=== PATIENT | male | born 1940 | race Two or more races ===

== ENCOUNTER → 2016-09-15 | Outpatient (REF) | payer MEDICARE, BC, OTHER ==
[2016-09-15 13:44] LABS: CALCIUM LEVEL 9.9 MG/DL (8.8-10.2); CREATININE FOR GFR 1.42 MG/DL (0.70-1.30); GLOMERULAR FILTRATION RATE 51.3 (>42); POTASSIUM SERUM 4.8 MEQ/L (3.5-5.1)
== END ==
LOC: M SFHCPLAZ 11:37
PROVIDERS: ATTEND Family Medicine
DX: I10 Essential (primary) hypertension (principal); F17.200 Nicotine dependence, unspecified, uncomplicated; M19.90 Unspecified osteoarthritis, unspecified site; F33.41 Major depressive disorder, recurrent, in partial remission; Z79.82 Long term (current) use of aspirin; Z79.899 Other long term (current) drug therapy
CPT/HCPCS: 80048; 80061; 83036; 94010; G0463

== ENCOUNTER → 2016-09-30 | Outpatient (CLI) | payer MEDICARE, BC, OTHER ==
--- NOTE | 2016-09-30 12:50 | REP ---
BILATERAL ANKLES: AP and lateral views of the bilateral ankles are performed. There is no acute fracture or dislocation on the left. There is moderate narrowing of the tibiotalar joint with subchondral sclerosis. Mild vascular calcifications are seen in the soft tissues. There is mild narrowing and subchondral sclerosis at the talonavicular joint. On the right there is no fracture or dislocation. There is tiny posterior and inferior calcaneal spurring. There are mild vascular calcifications in the soft tissues. There is moderate narrowing, subchondral sclerosis and spurring at the talonavicular joint. IMPRESSION: Bilateral arthritic changes as above. Signed by Alexey Hassan MD 09/30/2016 05:09 P
== END ==
LOC: M LAB 10:50 → M RAD 10:50
PROVIDERS: ATTEND Family Medicine
DX: M19.90 Unspecified osteoarthritis, unspecified site (principal)

== ENCOUNTER → 2016-11-28 | Outpatient (REF) | payer MEDICARE, OTHER ==
[2016-11-28 15:38] LABS: CALCIUM LEVEL 9.1 MG/DL (8.8-10.2); CREATININE FOR GFR 1.58 MG/DL (0.70-1.30); GLOMERULAR FILTRATION RATE 45.4 (>42); POTASSIUM SERUM 4.6 MEQ/L (3.5-5.1)
== END ==
LOC: M SFHCPLAZ 12:32
PROVIDERS: ATTEND Family Medicine
DX: N18.3 Chronic kidney disease, stage 3 (moderate) (principal); E11.22 Type 2 diabetes mellitus with diabetic chronic kidney disease

== ENCOUNTER → 2016-12-02 | Outpatient (REF) | payer MEDICARE, OTHER | LOC: M SFHCPLAZ 10:49 | PROVIDERS: ATTEND Family Medicine | DX: L98.9 Disorder of the skin and subcutaneous tissue, unspecified (principal) | CPT/HCPCS: 11602; 13132; 88305; G0463 ==

== ENCOUNTER → 2017-03-11 | Outpatient (REF) | payer MEDICARE, OTHER ==
[2017-03-11 10:55] LABS: ANION GAP 6 MEQ/L (8-16); BLOOD UREA NITROGEN 24 MG/DL (7-18); CALCIUM LEVEL 8.7 MG/DL (8.8-10.2); CARBON DIOXIDE LEVEL 27 MEQ/L (21-32); CHLORIDE LEVEL 109 MEQ/L (98-107); CREATININE FOR GFR 1.55 MG/DL (0.70-1.30); GLOMERULAR FILTRATION RATE 46.4 (>42); GLUCOSE, FASTING 119 MG/DL (70-100); POTASSIUM SERUM 4.8 MEQ/L (3.5-5.1); SODIUM LEVEL 142 MEQ/L (136-145); URIC ACID 5.9 MG/DL (3.5-7.2)
[2017-03-11 11:30] LABS: MALB URINE SIEMENS 18.7 MG/L; MAU/CREAT RATIO 15.7 MCG/MG (0.0-30.0)
[2017-03-11 11:32] LABS: ESTIMATED AVERAGE GLUCOSE 123 MG/DL (60-110); HEMOGLOBIN A1c 5.9 %
== END ==
LOC: M SFHCPLAZ 08:39
DX: E11.22 Type 2 diabetes mellitus with diabetic chronic kidney disease (principal); N18.3 Chronic kidney disease, stage 3 (moderate)
CPT/HCPCS: 84550

== ENCOUNTER → 2017-08-13 | Outpatient (REF) | payer MEDICARE, OTHER ==
[2017-08-13 12:40] LABS: ANION GAP 7 MEQ/L (8-16); BLOOD UREA NITROGEN 32 MG/DL (7-18); CARBON DIOXIDE LEVEL 26 MEQ/L (21-32); CHLORIDE LEVEL 110 MEQ/L (98-107); CREATININE FOR GFR 1.56 MG/DL (0.70-1.30); GLOMERULAR FILTRATION RATE 45.9 (>42); GLUCOSE, FASTING 100 MG/DL (70-100); POTASSIUM SERUM 4.9 MEQ/L (3.5-5.1); SODIUM LEVEL 143 MEQ/L (136-145)
[2017-08-13 12:52] LABS: CREATININE, URINE 95.3 MG/DL; MALB URINE SIEMENS 19.8 MG/L; MAU/CREAT RATIO 20.7 MCG/MG (0.0-30.0)
[2017-08-13 13:02] LABS: ESTIMATED AVERAGE GLUCOSE 137 MG/DL (60-110); HEMOGLOBIN A1c 6.4 %
== END ==
LOC: M SFHCPLAZ 08:18
DX: E11.22 Type 2 diabetes mellitus with diabetic chronic kidney disease (principal); N18.3 Chronic kidney disease, stage 3 (moderate)
CPT/HCPCS: 83036

== ENCOUNTER 2018-02-25 15:11 | Emergency (ER) | payer MEDICARE, BC, OTHER ==
[~2018-02-25] VITALS: Ht 177.8 cm; Wt 72.7 kg
[2018-02-25] MEDS ORDERED: HYDR-3716 PO (15:25)
[2018-02-25] MEDS ORDERED: LISI-542 PO (15:25)
[2018-02-25] MEDS ORDERED: GABA-1171 PO (15:25)
[2018-02-25] MEDS ORDERED: JANU25TA PO (15:25)
[2018-02-25] MEDS ORDERED: NS 1,000 ML IV SCH (16:15)
[2018-02-25 16:21] LABS: BASO # 0.1 10^3/uL (0.0-0.2); BASO % 0.9 % (0.0-1.0); EOS # 0.1 10^3/uL (0.0-0.50); EOS % 0.7 % (0.0-3.0); HEMATOCRIT 32.2 % (42.0-52.0); HEMOGLOBIN 10.3 g/dl (13.5-17.5); LYMPH # 0.6 10^3/uL (1.5-4.5); LYMPH % 6.6 % (24.0-44.0); MEAN CORPUSCULAR HEMOGLOBIN 28.8 pg (27.0-33.0); MEAN CORPUSCULAR VOLUME 89.9 fl (80.0-96.0); MONO # 0.6 10^3/uL (0.0-0.8); MONO % 6.8 % (0.0-5.0); NEUTROPHILS # 7.3 10^3/uL (1.8-7.7); NEUTROPHILS % 84.7 % (36.0-66.0); PLATELET COUNT, AUTOMATED 215 10^3/uL (150-450); RED BLOOD COUNT 3.58 10^6/uL (4.30-6.10); WHITE BLOOD COUNT 8.7 10^3/uL (4.0-10.0)
[2018-02-25 16:35] LABS: CALCIUM LEVEL 8.7 MG/DL (8.8-10.2); CREATININE FOR GFR 1.46 MG/DL (0.70-1.30); GLOMERULAR FILTRATION RATE 49.6 (>42); POTASSIUM SERUM 4.6 MEQ/L (3.5-5.1)
[2018-02-25 16:51] VITALS: BP 186/86
[2018-02-26] MEDS ORDERED: DULO1CAP2 PO (11:48)
[2018-02-26] MEDS ORDERED: PROAAER10 INH (13:49)
== END 2018-02-25 16:55 | disposition home or self-care (01) ==
LOC: M ED 15:11 → EDBD 15:11 → M ED 16:55
DX: R30.0 Dysuria (principal); E11.9 Type 2 diabetes mellitus without complications; I10 Essential (primary) hypertension; M19.90 Unspecified osteoarthritis, unspecified site; F32.9 Major depressive disorder, single episode, unspecified; M25.579 Pain in unspecified ankle and joints of unspecified foot; K26.9 Duodenal ulcer, unspecified as acute or chronic, without hemorrhage or perforation; Z72.0 Tobacco use; Z79.899 Other long term (current) drug therapy

== ENCOUNTER 2018-02-26 11:11 | Inpatient (IN) | payer MEDICARE, BC, OTHER ==
[~2018-02-26] VITALS: Ht 177.8 cm; Wt 71.6 kg
[2018-02-26] MEDS: LISINOPRIL 5 MG TAB PO SCH (09:00)
[2018-02-26] MEDS: DULoxetine 30 MG CAP (CYMBALTA) PO SCH (09:00)
[~2018-02-26 11:11] MED LIST: GABA-1171 PO; HYDR-3716 PO; JANU25TA PO; LISI-542 PO
[2018-02-26 11:45] LABS: BASO # 0.1 10^3/uL (0.0-0.2); BASO % 0.9 % (0.0-1.0); EOS % 0.3 % (0.0-3.0); HEMATOCRIT 39.5 % (42.0-52.0); HEMOGLOBIN 12.3 g/dl (13.5-17.5); LYMPH # 0.8 10^3/uL (1.5-4.5); LYMPH % 12.1 % (24.0-44.0); MEAN CORPUSCULAR HEMOGLOBIN 28.4 pg (27.0-33.0); MEAN CORPUSCULAR HGB CONC 31.1 g/dl (32.0-36.5); MEAN CORPUSCULAR VOLUME 91.2 fl (80.0-96.0); MONO # 0.4 10^3/uL (0.0-0.8); MONO % 6.2 % (0.0-5.0); NEUTROPHILS # 5.5 10^3/uL (1.8-7.7); NEUTROPHILS % 80.4 % (36.0-66.0); PLATELET COUNT, AUTOMATED 216 10^3/uL (150-450); RED BLOOD COUNT 4.33 10^6/uL (4.30-6.10); WHITE BLOOD COUNT 6.8 10^3/uL (4.0-10.0)
[2018-02-26] MEDS ORDERED: DULO1CAP2 PO (11:48)
--- NOTE | 2018-02-26 12:12 | REP ---
CT Head without contrast HISTORY: Altered mental status COMPARISON: None Areas of decreased attenuation are present in the periventricular and subcortical white matter. This represents small-vessel ischemic disease. There is no intraparenchymal hemorrhage, acute infarct, mass or midline shift. The ventricular system and cortical sulci as well as subarachnoid space in the posterior fossa are dilated consistent with moderate volume loss. There is no extra cerebral collection. There is no fracture. The visualized sinuses are clear. IMPRESSION: 1. Small vessel ischemic disease. 2. Moderate volume loss. Electronically Signed by Seven Morin MD 02/26/2018 12:03 P
[2018-02-26 12:18] LABS: AMPHETAMINES LEVEL URINE NEGATIVE (NEGATIVE); BARBITURATES URINE NEGATIVE (NEGATIVE); BENZODIAZEPINES URINE NEGATIVE (NEGATIVE); CANNABINOIDS URINE NEGATIVE (NEGATIVE); COCAINE METABOLITE URINE NEGATIVE (NEGATIVE); METHADONE URINE NEGATIVE (NEGATIVE); OPIATES URINE POSITIVE (NEGATIVE); PHENCYCLIDINE URINE NEGATIVE (NEGATIVE)
[2018-02-26] MEDS ORDERED: ONDANSETRON 4MG/2ML VIAL (J2405) As Ordered ONE (12:18)
[2018-02-26] MEDS ORDERED: ONDANSETRON 4MG/2ML VIAL (J2405) IV ONE (12:30)
[2018-02-26] MEDS ORDERED: NS 1,000 ML IV ONE (12:30)
[2018-02-26 12:40] LABS: ALBUMIN 3.7 GM/DL (3.2-5.2); ALT/SGPT 20 U/L (12-78); BILIRUBIN,DIRECT 0.1 MG/DL (0.0-0.2); BILIRUBIN,TOTAL 0.4 MG/DL (0.2-1.0); BLOOD UREA NITROGEN 19 MG/DL (7-18); CALCIUM LEVEL 9.2 MG/DL (8.8-10.2); CARBON DIOXIDE LEVEL 24 MEQ/L (21-32); CHLORIDE LEVEL 104 MEQ/L (98-107); CPK CREATINE PHOSPHOKINASE 508 U/L (39-308); CREATININE FOR GFR 1.44 MG/DL (0.70-1.30); ETHYL ALCOHOL (ETHANOL) < 0.003 % (0.000-0.010); GLOMERULAR FILTRATION RATE 50.4 (>42); GLUCOSE, FASTING 135 MG/DL (70-100); MB/CK RELATIVE INDEX 1.93 (< OR =4); POTASSIUM SERUM 4.6 MEQ/L (3.5-5.1); SODIUM LEVEL 136 MEQ/L (136-145); TOTAL PROTEIN 7.8 GM/DL (6.4-8.2); TROPONIN I 0.05 NG/ML (< 0.10)
[2018-02-26] MEDS ORDERED: ISOVUE-370 76% 100ML VIAL (Q9967) As Ordered ONE (12:59)
--- NOTE | 2018-02-26 13:47 | REP ---
CHEST, TWO VIEWS: Two views of the chest are performed. I have no prior study. Biapical pleural and parenchymal scarring is noted. There is mild diffuse interstitial fibrosis. No focal infiltrate is seen. The heart is not enlarged. There is calcification of the thoracic aorta. The mediastinal silhouette is otherwise unremarkable. There are degenerative changes of the spine. Metallic clips are seen in the upper abdomen. IMPRESSION: Chronic findings without evidence of acute infiltrate. Electronically Signed by Alexey Hassan MD 02/26/2018 05:28 P
[2018-02-26] MEDS ORDERED: PROAAER10 INH (13:49)
--- NOTE | 2018-02-26 13:52 | REP ---
CT ABDOMEN PELVIS WITHOUT IV CONTRAST: 02/26/2018. CLINICAL HISTORY: Vomiting. TECHNIQUE: The patient received bolus of 100 ml Isovue 370 scanning through the abdomen pelvis without oral or IV contrast. Coronal and sagittal reconstructions provided. FINDINGS: No prior study.CT ABDOMEN: Lung bases show no infiltrate or effusion. There is some very minimal cylindrical bronchiectatic change in both lower lung zones. Surgical clips at the GE junction are noted bilaterally. There is no gross hiatal hernia. Heart size not enlarged. There is no hepatosplenomegaly, focal hepatic or splenic lesion nor intrahepatic biliary dilatation. Gallbladder adequately filled. No definite calcified gallstones. I see no upper abdominal ascites. Stomach collapsed with only minimal fluid within. Adrenal glands grossly normal. The kidneys show a few tiny peripheral cortical cysts upper pole on the left with some mild lobation. There is no hydronephrosis, hydroureter, renal or ureteral stone. Atherosclerotic calcifications of the aorta noted without aneurysm. No periaortic, retroperitoneal or other intra-abdominal pathologic sized lymphadenopathy. Some mild prominence of proximal small bowel loops with slight wall thickening that may reflect some gastroenteritis. The remainder of bowel loops within the abdomen proper are grossly intact. Appendix seen and normal. Lung window review of all CT slices abdomen and pelvis shows no perforation or free air. There is diverticulosis left colon and sigmoid but also some at the hepatic flexure. Bone windows show vacuum phenomena at L5-S1 and L3-4 with narrowing of these levels with the other levels maintain. No compression deformity seen. The posterior elements show minor hypertrophic facet change but no spondylolysis. Minor degenerative changes lower thoracic spine. Visualized ribs intact. CT PELVIS: SI joints, sacrum, iliac bones, hips and pelvis without destructive lesion or fracture. There are degenerative changes of the hips and SI joints and a few bone islands evident in the iliac bones. Distal left colonic and sigmoid diverticulosis without definite diverticulitis. No pelvic ascites. There is an inguinal hernia on the left with a small amount of distal left colon into the inguinal canal or omental fat seen below it distending the inguinal canal. There is no obstruction seen. There is no pelvic ascites or adenopathy. No inguinal adenopathy or ventral midline hernia. No right inguinal hernia. Bone windows of the pelvis show degenerative changes of the hips and SI joints which are mild, but no acute finding. IMPRESSION: 1. There is diverticulosis of the left colon, sigmoid and scattered elsewhere but without colitis or diverticulitis and no perforation or free air. 2. Left inguinal hernia with small amount of the distal left colon extending into the upper of inguinal canal on the left and omental fat below it. This is not obstructing. 3. Proximal small bowel loops in the left upper quadrant show a slight bowel wall thickening and edema suggesting some gastroenteritis. No air-fluid levels or signs of obstruction. 4. No generalized ascites, adenopathy, mass of solid organs or other acute finding. Electronically Signed by Jarocho Taveras MD 02/26/2018 05:00 P
--- NOTE | 2018-02-26 14:00 | ECGEPIP ---
Stationary ECG Study [facility] - ED Test Date: 2018-02-26 Pat Name: MATTHEW FULTON Department: Room: - Gender: M Shank Inspector: ct : 1940 Requested By: ROXI Naik Order Number: [id number] Reading MD: Hope Leach Measurements Intervals [place] Rate: 99 P: 60 ID: [id number] QRS: 42 QRSD: 82 T: 113 QT: 331 QTc: 426 Interpretive Statements SINUS RHYTHM NONSPECIFIC ST & T-WAVE ABNORMALITY BASELINE ARTIFACT LIMITS INTERPRETATION NO PRIOR FOR COMPARISON Electronically Signed On 02-26-2018 13:59:52 EST by Hope Leach
[2018-02-26] MEDS ORDERED: ONDANSETRON 4MG/2ML VIAL (J2405) IV PRN (15:00)
[2018-02-26] MEDS ORDERED: ACETAMINOPHEN TAB 650MG DOSE (2X325MG) PO PRN (15:00)
--- NOTE | 2018-02-26 15:00 | HPEPDOC ---
[facility] Medical History & Physical Date of Admission Feb 26, 2018 History and Physical ATTENDING: PCP: Dr Otto Fishman CC: confusion HPI: 77yoM who was seen in the emergency department 02/25/18 related to dysuria. Labs were unremarkable. UA was unremarkable. The patient was straight cathed and subsequently discharged home approximately 5 PM. The patient's is at the bedside and states the patient woke up at approximately 3:30 AM. He seemed to be confused. He was apparently dressing and appropriately. His reports slurred speech. She did not notice any weakness in the upper or lower extremities. The patient did not report any numbness or tingling in upper or lower extremities. No complaint of neck or low back pain. No report of blurred vision, diplopia, dizziness, vertigo, headache or dysphagia. The patient's did not notice any facial drooping. She reports he seemed to be unsteady on his feet for the past couple of days however no falls. He does not use any assistive devices for ambulation. In the emergency department, the patient was noted to have orthostatic changes. He had an episode of vomiting with standing at the bedside. His reports he has had some dry heaves at home. He continues to have difficulty finding words and difficulty with expression according to his . She also reports he has continued to report dysuria. He has not had any hematuria, frequency, urgency. Denies any fevers, chills,SOB, cough, palpitations, abdominal pain, or changes in bowel habits. Upon presentation to the hospital the patient was found to have confusion, thus the hospitalist team was consulted. PMHx: Hypertension Dyslipidemia NIDDM CKD 3 Depression Anxiety Chronic ankle pain/osteoarthritis. On hydrocodone for chronic pain. COPD History of duodenal ulcer PSHX: Pyloroplasty 1968 [place] II 1987 Left rotator cuff surgery Right knee arthroscopy Foot surgery SOCHX: Resides in: [facility] Marital Status: Employment: Retired security Tobacco use: 2 packs per day ETOH: Denies Advanced directives: None FAMHX: Mother: , CVA Father: , homicide Siblings: 4 sisters Alive, well 3 sisters brain tumor, lung cancer, [place]. ROS: As noted in HPI, otherwise 11pt ROS of systems reviewed and unremarkable. PE: GEN: 77 yo M, appears stated age. Well-nourished, well developed. No acute distress. The patient is alert and sitting up on the stretcher in the emergency department. He is oriented to person and place. He is answering questions appropriately, does seem to have some difficulty with word finding. HEENT: Normocephalic, atraumatic. Pupils are equal, round, and reactive to light. Extraocular movements are intact. No nystagmus appreciated. Sclera are nonicteric. Conjunctiva without injection. Nose midline. Nasal turbinates without bogginess. No facial asymmetry. Moist mucous membranes. Pharynx pink and moist, no cobblestoning. Neck supple, trachea midline. No lymphadenopathy or thyromegaly appreciated. CHEST: Regular rate and rhythm, +S1, +S2 LUNGS: Clear to auscultation bilaterally. No wheezes, rales, or rhonchi. Breathing appears symmetric and easy. Patient is speaking in full sentences. No accessory muscle use. ABD: Round, soft, non-tender, non-distended. +Bowel sounds throughout. No rebound or guarding. No costovertebral angle tenderness. EXT: Pulses 2+ bilaterally dorsalis pedis and radial. No lower extremity edema appreciated. SKIN: [place], dry, warm. Capillary refill <2sec. No rashes. NEURO: Alert and oriented x 3. Cranial nerves III-XII are grossly intact. No focal deficits appreciated. CXR: Chronic findings without evidence of acute infiltrate. Unreviewed DD: Alexey Hassan MD, MD 02/26/18 1310 CTH 1. Small vessel ischemic disease. 2. Moderate volume loss. Electronically Signed by Seven Morin MD 02/26/2018 12:03 P CTA/P 1. There is diverticulosis of the left colon, sigmoid and scattered elsewhere but without colitis or diverticulitis and no perforation or free air. 2. Left inguinal hernia with small amount of the distal left colon extending into the upper of inguinal canal on the left and omental fat below it. This is not obstructing. 3. Proximal small bowel loops in the left upper quadrant show a slight bowel wall thickening and edema suggesting some gastroenteritis. No air-fluid levels or signs of obstruction. 4. No generalized ascites, adenopathy, mass of solid organs or other acute finding. Unreviewed DD: Jarocho Taveras MD 02/26/18 1311 UA trace blood Ammonia level 13 MRI/MRA brain pending. A&P: 77yoM who was seen in the emergency department 02/25/18 related to dysuria. Labs were unremarkable. UA was unremarkable. The patient was straight cathed and subsequently discharged home approximately 5 PM. The patient's is at the bedside and states the patient woke up at approximately 3:30 AM. He seemed to be confused. He was apparently dressing and appropriately. His reports slurred speech. She did not notice any weakness in the upper or lower extremities. The patient did not report any numbness or tingling in upper or lower extremities. No complaint of neck or low back pain. No report of blurred vision, diplopia, dizziness, vertigo, headache or dyspha eliana. The patient's did not notice any facial drooping. She reports he seemed to be unsteady on his feet for the past couple of days however no falls. He does not use any assistive devices for ambulation. In the emergency department, the patient was noted to have orthostatic changes. He had an episode of vomiting with standing at the bedside. His reports he has had some dry heaves at home. He continues to have difficulty finding words and difficulty with expression according to his . She also reports he has continued to report dysuria. He has not had any hematuria, frequency, urgency. The patient will be admitted to PCU for at least [address] Boyd's service. The patient is reviewed with Dr. Boyd. Confusion/unsteady gait Temperature 97.4 Heart rate 95 Blood pressure 190/77 O2 sat 95% on room air IV fluids 1 L given NAD. IV Zofran as needed PCU/TM Neuro checks Q4 PT eval pending MRI/MRA pending. CRP/ESR pending. Resp panel pending Dysuria UC pending Bladder scans. Hypertension. PCU/TM Orthostatic VS Serial CIP/troponin Lisinopril with hold parameter NIDDM Consistent carbohydrate diet Hold Januvia SSI. COPD Albuterol as needed CKD3 Serum creatinine noted to be 1.44. Appears to be at baseline 1.4-1.5. Chronic pain Temporarily hold [place]. Temporarily hold gabapentin. Depression Continue Cymbalta DVT prophylaxis. The patient is a full code Vital Signs Vital Signs Date Time Temp Pulse Resp B/P (MAP) Pulse Ox O2 Delivery O2 Flow Rate FiO2 02/26/18 13:45 95 20 190/77 (114) 95 Room Air 02/26/18 11:26 97.4 Laboratory Data Labs 24H Laboratory Tests 2 02/26/18 11:35: Immature Granulocyte % (Auto) 0.1, White Blood Count 6.8, Red Blood Count 4.33, Hemoglobin 12.3#L, Hematocrit 39.5L, Mean Corpuscular Volume 91.2, Mean [place] uscular Hemoglobin 28.4, Mean Corpuscular Hemoglobin Concent 31.1L, Red Cell Distribution Width 17.1H, Platelet Count 216, Neutrophils (%) (Auto) 80.4H, Lymphocytes (%) (Auto) 12.1L, Monocytes (%) (Auto) 6.2H, Eosinophils (%) (Auto) 0.3, Basophils (%) (Auto) 0.9, Neutrophils # (Auto) 5.5, Lymphocytes # (Auto) 0.8L, Monocytes # (Auto) 0.4, Eosinophils # (Auto) 0.0, Basophils # (Auto) 0.1, Nucleated Red Blood Cells % (auto) 0.0, Anion Gap 8, Glomerular Filtration Rate 50.4, Calcium Level 9.2, Aspartate Amino Transf (AST/SGOT) 28, Alanine Aminotransferase (ALT/SGPT) 20, Alkaline Phosphatase 87, Total Bilirubin 0.4, Direct Bilirubin 0.1, Ammonia 13, Total Creatine Kinase 508H, Creatine Kinase MB 10.0H, Creatine Kinase MB Relative Index 1.93, Troponin I 0.05, Total Protein 7.8, Albumin 3.7, Albumin/Globulin Ratio 0.90L, Thyroid Stimulating Hormone (TSH) 1.090, Ethyl Alcohol Level < 0.003 02/26/18 11:43: Urine Color YELLOW, Urine Appearance CLEAR, Urine pH 6.0, Urine Specific [place] 1.016, Urine Protein 1+H, Urine Glucose (UA) NEGATIVE, Urine Ketones TRACEH, Urine Blood 1+H, Urine Nitrite NEGATIVE, Urine Bilirubin NEGATIVE, Urine Urobilinogen 2.0H, Urine Leukocyte Esterase NEGATIVE, Urine WBC (Auto) 1, Urine RBC (Auto) 3, Urine Hyaline Casts (Auto) 0, Urine Bacteria (Auto) NEGATIVE, Urine Squamous Epithelial Cells 0, Urine Mucus (Auto) SMALL, Urine Sperm (Auto) , Urine Amphetamines Screen NEGATIVE, Urine Benzodiazepines Screen NEGATIVE, Urine Opiates Screen POSITIVEH, Urine Methadone Screen NEGATIVE, Urine Barbiturates Screen NEGATIVE, Urine Phencyclidine Screen NEGATIVE, Urine Cocaine Metabolite Screen NEGATIVE, Urine Cannabinoids Screen NEGATIVE CBC/BMP Laboratory Tests 02/26/18 11:35 Red Blood Count 4.33, Mean Corpuscular Volume 91.2, Mean Corpuscular Hemoglobin 28.4, Mean Corpuscular Hemoglobin Concent 31.1 L, Red Cell Distribution Width 17.1 H, Neutrophils (%) (Auto) 80.4 H, Lymphocytes (%) (Auto) 12.1 L, Monocytes (%) (Auto) 6.2 H, Eosinophils (%) (Auto) 0.3, Basophils (%) (Auto) 0.9, Neutrophils # (Auto) 5.5, Lymphocytes # (Auto) 0.8 L, Monocytes # (Auto) 0.4, Eosinophils # (Auto) 0.0, Basophils # (Auto) 0.1 Home Medications Scheduled Duloxetine Hcl (Duloxetine HCl) 30 Mg Cap, 30 MG PO DAILY Gabapentin (Gabapentin) 100 Mg Cap, 100 MG PO TID Lisinopril (Lisinopril) 5 Mg Tab, 5 MG PO DAILY Sitagliptin Phosphate (Januvia) 25 Mg Tab, 25 MG PO DAILY Scheduled PRN Acetaminophen/Hydrocodone (Hydrocodone/Acetaminophen 7.5-325 mg) 1 Tab Tab, 1 TAB PO Q6H PRN for PAIN Albuterol Sulfate (Proair Hfa) 108 Mcg/Act Aer, 2 PUFF INH Q6H PRN for SHORTNESS OF BREATH Allergies Coded Allergies: No Known Allergies (Unverified , 02/26/18) Nell Hodge Feb 26, 2018 15:00
[2018-02-26] MEDS ORDERED: GLUCAGON FOR INJ 1 MG VIAL (J1610) SC PRN (15:45)
[2018-02-26] MEDS ORDERED: DEXTROSE 50% 50 ML SYRINGE IV PRN (15:45)
[2018-02-26] MEDS ORDERED: GLUCOSE 4 GM CHEW TABLET PO PRN (15:45)
[2018-02-26] MEDS: HumaLOG INSULIN (NovoLOG) PER UNIT SC SCH ×2 (17:30→21:00)
[2018-02-26] MEDS: ALBUTEROL SULFATE 2.5 MG/0.5 ML INH NEB SOLN INH PRN (18:27)
[2018-02-26 18:55] LABS: MB/CK RELATIVE INDEX 1.75 (< OR =4); TROPONIN I 0.06 NG/ML (< 0.10)
--- NOTE | 2018-02-26 20:56 | REPVR ---
EXAM: MR Head Without Contrast EXAM DATE/TIME: 02/26/2018 8:04 PM CLINICAL HISTORY: 77 years old, male; Signs and symptoms; Altered mental status/memory loss; Confusion or disorientation; Patient HX: PT very confused, in and out of lucid state, ; additional info: CVA TECHNIQUE: MR of the head without contrast. COMPARISON: CT Head without contrast 02/26/2018 11:40 AM FINDINGS: Exam is limited secondary to motion No abnormal restriction of diffusion to indicate acute CVA. Midline structures and cerebellar tonsillar position appear normal. Ventricles, cisterns and sulci are symmetrically prominent. No intracranial mass, midline shift or abnormal extra-axial fluid. No acute intracranial hemorrhage. White matter structures are difficult to assess on CT because of motion. Vascular flow voids are difficult to assess because of motion. Paranasal sinuses are clear. Mastoid air cells are normally aerated. Optic globes and orbits are unremarkable. IMPRESSION: Limited study secondary to excessive patient motion on multiple sequences. The diffusion weighted sequence is not motion degraded and there is no evidence of an acute cortical infarct. Symmetric-appearing brain atrophy. Consider a repeat scan if symptoms persist, when clinically feasible Electronically signed by: Irwin Melgoza On 02/26/2018 20:56:23 PM
--- NOTE | 2018-02-26 20:58 | REPVR ---
EXAM: MR Angiogram Head Without Contrast, Arteries EXAM DATE/TIME: 02/26/2018 8:04 PM CLINICAL HISTORY: 77 years old, male; Signs and symptoms; Cognitive deficit; Altered mental status; Patient HX: PT very confused, in and out of lucid state, ; additional info: CVA TECHNIQUE: MR angiogram head without contrast. Exam focused on the arteries. MIP reconstructed images were created and reviewed. COMPARISON: CT Head without contrast 02/26/2018 11:40 AM FINDINGS: Anterior circulation: Normal flow signal and luminal caliber in the petrous, cavernous and supraclinoid internal carotid arteries. Normal appearance of the anterior cerebral artery branches and middle cerebral artery branches through the MCA trifurcations. No occlusion, high-grade focal stenosis or dissection. No aneurysm. Diminutive right A1 segment, with the majority of the right anterior cerebral artery supplied by an anterior communicating artery Posterior circulation: Normal distal vertebral arteries, with patent normal caliber basilar artery, and normal superior cerebellar and posterior cerebral arteries. No occlusion, high-grade stenosis or aneurysm. IMPRESSION: Unremarkable MR angiogram of the [place] and intracranial vertebrobasilar system. Electronically signed by: Irwin Melgoza On 02/26/2018 20:57:51 PM
[2018-02-26 23:00] VITALS: BP 163/81
[2018-02-27 03:15] LABS: HEMATOCRIT 34.4 % (42.0-52.0); HEMOGLOBIN 10.8 g/dl (13.5-17.5); MEAN CORPUSCULAR HEMOGLOBIN 28.2 pg (27.0-33.0); MEAN CORPUSCULAR HGB CONC 31.4 g/dl (32.0-36.5); MEAN CORPUSCULAR VOLUME 89.8 fl (80.0-96.0); PLATELET COUNT, AUTOMATED 195 10^3/uL (150-450); RED BLOOD COUNT 3.83 10^6/uL (4.30-6.10); WHITE BLOOD COUNT 10.3 10^3/uL (4.0-10.0)
[2018-02-27 03:47] LABS: ALBUMIN 3.1 GM/DL (3.2-5.2); BILIRUBIN,TOTAL 0.3 MG/DL (0.2-1.0); CREATININE FOR GFR 1.36 MG/DL (0.70-1.30); GLOMERULAR FILTRATION RATE 53.8 (>42); MB/CK RELATIVE INDEX 1.55 (< OR =4); TOTAL PROTEIN 7.4 GM/DL (6.4-8.2); TROPONIN I 0.11 NG/ML (< 0.10)
[2018-02-27 04:45] VITALS: BP 178/62
[2018-02-27 05:20] VITALS: BP 158/76
[2018-02-27] MEDS: ALBUTEROL SULFATE 2.5 MG/0.5 ML INH NEB SOLN INH PRN (06:14)
[2018-02-27] MEDS: HumaLOG INSULIN (NovoLOG) PER UNIT SC SCH ×4 (07:30→20:54)
[2018-02-27 08:00] VITALS: BP 145/71
[2018-02-27] MEDS: DULoxetine 30 MG CAP (CYMBALTA) PO SCH (08:40)
[2018-02-27] MEDS: LISINOPRIL 5 MG TAB PO SCH (08:41)
[2018-02-27 10:53] LABS: MB/CK RELATIVE INDEX 1.47 (< OR =4); TROPONIN I 0.09 NG/ML (< 0.10)
--- NOTE | 2018-02-27 11:03 | IPNPDOC ---
Date Seen The patient was seen on 02/27/18. Progress Note SUBJECTIVE: Patient reports feeling better today he tells me that he still has some difficulty with word finding as per him is been like this for the last 2 years he denies dysuria abdominal pain chest pressure shortness of breath lightheadedness or dizziness that he feels fairly normal OBJECTIVE PHYSICAL EXAMINATION: VITAL SIGNS: Please see below. GENERAL: Pleasant elderly man awake alert oriented 3 conversant but he certainly appears to have difficulty with word finding this difficulty completing sentences HEENT: Cranial nerves II through XII appear grossly intact CARDIOVASCULAR: S1-S2 regular. He is noted to be mildly tachycardic without additional heart sounds appreciated RESPIRATORY: Fairly clear to auscultation bilaterally. ABDOMINAL: Bowel sounds are present abdomen soft and nontender EXTREMITIES: No clubbing cyanosis or edema NEUROLOGICAL: No focal deficits LABORATORY DATA, IMAGING STUDIES, MICROBIOLOGY: Please see below. DVT prophylaxis ordered?: I will start Lovenox ASSESSMENT AND PLAN: This is a 77-year-old man with difficulty with word finding. PROBLEMS: 1. Difficulty with word finding: The patient presented yesterday with confusion and difficulty with word finding during my exam yesterday he was difficult to understand today he does not appear to be confused at all but continues to have difficulty with word finding as MRI was negative although not a great study. His metabolic panel is unremarkable other than some mild creatine kinase his CBC was fairly unremarkable. He does have some mildly elevated inflammatory markers urinalysis was fairly unremarkable. Urine toxicology was positive for opiates which he takes at home chronically for chronic pain. I do not have a clear etiology for his elevated CKs difficult with word finding and as such I'll place a neurology consult respiratory PCR panel should be collected blood cultures were drawn and are pending it does appear to be mildly improved today at its call speak with his regarding More history she'll be admitted later today as well the patient tells me he is had this for 2 years however is my first time meeting him over the last 2 days his states that his more recent de velopment within the last 2 weeks. We are holding his home gabapentin and narcotics these are not new medications for him PT and OT eval also been ordered. The patient denies any joint pain there is no antecedent to infection to suggest a reactive arthritis or Nica's syndrome. I have reached out to neurology today for an inpatient consultation 2. Dysuria: Appears to have resolved her urinalysis is fairly unremarkable he does not appear to be retaining any urine there is no suprapubic tenderness 3 Hypertension: Continue with lisinopril and blood pressure is improved today, he was asked a mildly hypertensive yesterday (with gentle normal saline 4. NIDDM:Consistent carbohydrate diet, Sil [place], SSI. 5. COPD: Comfortable on room air, he is at his baseline respiratory status, Albuterol as needed 6. CKD3:Serum creatinine noted to be 1.44. Appears to be at baseline 1.4-1.5. 7. Chronic pain:Temporarily hold [place].Temporarily hold gabapentin. 8. Depression:Continue Cymbalta 9. Abnormal CKs: Mildly elevated we'll provide very gentle fluids he was reportedly orthostatic yesterday we'll do this while monitoring his respiratory status and blood pressure closely The patient is a full code DISPOSITION: Pending clinical improvement. VS, I&O, 24H, Fishbone Vital Signs/I&O Vital Signs Date Time Temp Pulse Resp B/P (MAP) Pulse Ox O2 Delivery O2 Flow Rate FiO2 02/27/18 08:41 145/71 02/27/18 08:00 99.6 105 18 94 Room Air I&O- Last 24 Hours up to 6 AM 02/27/18 06:00 Intake Total 1000 ml Output Total 275 ml Balance 725 ml Laboratory Data 24H LABS Laboratory Tests 2 02/26/18 11:35: Immature Granulocyte % (Auto) 0.1, White Blood Count 6.8, Red Blood Count 4.33, Hemoglobin 12.3#L, Hematocrit 39.5L, Mean Corpuscular Volume 91.2, Mean Corpuscular Hemoglobin 28.4, Mean Corpuscular Hemoglobin Concent 31.1L, Red Cell Distribution Width 17.1H, Platelet Count 216, Neutrophils (%) (Auto) 80.4H, Lymphocytes (%) (Auto) 12.1L, Monocytes (%) (Auto) 6.2H, Eosinophils (%) (Auto) 0.3, Basophils (%) (Auto) 0.9, Neutrophils # (Auto) 5.5, Lymphocytes # (Auto) 0.8L, Monocytes # (Auto) 0.4, Eosinophils # (Auto) 0.0, Basophils # (Auto) 0.1, Nucleated Red Blood Cells % (auto) 0.0, Anion Gap 8, Glomerular Filtration Rate 50.4, Calcium Level 9.2, Aspartate Amino Transf (AST/SGOT) 28, Alanine Aminotransferase (ALT/SGPT) 20, Alkaline Phosphatase 87, Total Bilirubin 0.4, Direct Bilirubin 0.1, Ammonia 13, Total Creatine Kinase 508H, Creatine Kinase MB 10.0H, Creatine Kinase MB Relative Index 1.93, Troponin I 0.05, Total Protein 7.8, Albumin 3.7, Albumin/Globulin Ratio 0.90L, Thyroid Stimulating Hormone (TSH) 1.090, Ethyl Alcohol Level < 0.003 02/26/18 11:43: Urine Color YELLOW, Urine Appearance CLEAR, Urine pH 6.0, Urine Specific [place] 1.016, Urine Protein 1+H, Urine Glucose (UA) NEGATIVE, Urine Ketones TRACEH, Urine Blood 1+H, Urine Nitrite NEGATIVE, Urine Bilirubin NEGATIVE, Urine Urobilinogen 2.0H, Urine Leukocyte Esterase NEGATIVE, Urine WBC (Auto) 1, Urine RBC (Auto) 3, Urine Hyaline Casts (Auto) 0, Urine Bacteria (Auto) NEGATIVE, Urine Squamous Epithelial Cells 0, Urine Mucus (Auto) SMALL, Urine Sperm (Auto) , Urine Amphetamines Screen NEGATIVE, Urine Benzodiazepines Screen NEGATIVE, Urine Opiates Screen POSITIVEH, Urine Methadone Screen NEGATIVE, Urine Barbiturates Screen NEGATIVE, Urine Phencyclidine Screen NEGATIVE, Urine Cocaine Metabolite Screen NEGATIVE, Urine Cannabinoids Screen NEGATIVE 02/26/18 18:05: Bedside Glucose (Misc Panel) 101 02/26/18 18:12: Total Creatine Kinase 587H, Creatine Kinase MB 10.0H, Creatine Kinase MB Rel ative Index 1.75, Troponin I 0.06, Erythrocyte Sedimentation Rate 60H, C- Reactive Protein, Quantitative 3.19H 02/26/18 21:01: Bedside Glucose (Misc Panel) 128H 02/27/18 03:07: Nucleated Red Blood Cells % (auto) 0.0, Anion Gap 10, Glomerular Filtration Rate 53.8, Blood Urea Nitrogen 18, Creatinine 1.36H, Sodium Level 139, Potassium Level 4.0, Chloride Level 107, Carbon Dioxide Level 22, Calcium Level 9.0, Aspartate Amino Transf (AST/SGOT) 36, Alanine Aminotransferase (ALT/SGPT) 24, Total Creatine Kinase 767H, Alkaline Phosphatase 76, Total Bilirubin 0.3, Total Protein 7.4, Albumin 3.1L, Magnesium Level 2.0, Creatine Kinase MB 12.0H, Creatine Kinase MB Relative Index 1.55, Troponin I 0.11#H, Albumin/Globulin Ratio 0.72L 02/27/18 07:05: Troponin I 0.10 02/27/18 10:07: Total Creatine Kinase 816H, Creatine Kinase MB 12.0H, Creatine Kinase MB Relative Index 1.47, Troponin I 0.09 CBC/BMP Laboratory Tests 02/26/18 11:35 Red Blood Count 4.33, Mean Corpuscular Volume 91.2, Mean Corpuscular Hemoglobin 28.4, Mean Corpuscular Hemoglobin Concent 31.1 L, Red Cell Distribution Width 17.1 H, Neutrophils (%) (Auto) 80.4 H, Lymphocytes (%) (Auto) 12.1 L, Monocytes (%) (Auto) 6.2 H, Eosinophils (%) (Auto) 0.3, Basophils (%) (Auto) 0.9, Neutrophils # (Auto) 5.5, Lymphocytes # (Auto) 0.8 L, Monocytes # (Auto) 0.4, Eosinophils # (Auto) 0.0, Basophils # (Auto) 0.1 02/27/18 03:07 Red Blood Count 3.83 L, Mean Corpuscular Volume 89.8, Mean Corpuscular Hemoglobin 28.2, Mean Corpuscular Hemoglobin Concent 31.4 L, Red Cell Distribution Width 17.3 H, Calcium Level 9.0, Aspartate Amino Transf (AST/SGOT) 36, Alanine Aminotransferase (ALT/SGPT) 24, Total Creatine Kinase 767 H, A lkaline Phosphatase 76, Total Bilirubin 0.3, Total Protein 7.4, Albumin 3.1 L Microbiology Microbiology 02/27/18 Blood Culture, Received Pending 02/27/18 Blood Culture, Received Pending BILL COUGHLIN MD Feb 27, 2018 11:03
[2018-02-27] MEDS: NS 1,000 ML IV SCH (11:55)
[2018-02-27] MEDS: ENOXAPARIN 40 MG/0.4 ML SYRINGE (J1650) SC SCH (11:56)
[2018-02-27 12:00] VITALS: BP 141/63
[2018-02-27 16:00] VITALS: BP 176/74
[2018-02-27 20:00] VITALS: BP 172/70
[2018-02-28] VITALS (7 sets, daily range): BP systolic 145–181; BP diastolic 68–90
[2018-02-28] MEDS: NS 1,000 ML IV SCH (00:17)
[2018-02-28] MEDS: ALBUTEROL SULFATE 2.5 MG/0.5 ML INH NEB SOLN INH PRN ×6 (01:41→21:36)
[2018-02-28] MEDS: CEPACOL LOZENGE PO PRN ×5 (02:41→18:20)
[2018-02-28 05:24] LABS: HEMATOCRIT 35.7 % (42.0-52.0); HEMOGLOBIN 10.9 g/dl (13.5-17.5); MEAN CORPUSCULAR HEMOGLOBIN 28.2 pg (27.0-33.0); MEAN CORPUSCULAR HGB CONC 30.5 g/dl (32.0-36.5); MEAN CORPUSCULAR VOLUME 92.5 fl (80.0-96.0); PLATELET COUNT, AUTOMATED 196 10^3/uL (150-450); RED BLOOD COUNT 3.86 10^6/uL (4.30-6.10); WHITE BLOOD COUNT 9.4 10^3/uL (4.0-10.0)
[2018-02-28 05:48] LABS: ALBUMIN 3.1 GM/DL (3.2-5.2); ALT/SGPT 26 U/L (12-78); BILIRUBIN,TOTAL 0.4 MG/DL (0.2-1.0); BLOOD UREA NITROGEN 19 MG/DL (7-18); CALCIUM LEVEL 8.9 MG/DL (8.8-10.2); CARBON DIOXIDE LEVEL 21 MEQ/L (21-32); CHLORIDE LEVEL 110 MEQ/L (98-107); CREATININE FOR GFR 1.23 MG/DL (0.70-1.30); GLOMERULAR FILTRATION RATE > 60.0 (>42); GLUCOSE, FASTING 100 MG/DL (70-100); MAGNESIUM LEVEL 2.1 MG/DL (1.8-2.4); POTASSIUM SERUM 3.8 MEQ/L (3.5-5.1); SODIUM LEVEL 142 MEQ/L (136-145); TOTAL PROTEIN 7.1 GM/DL (6.4-8.2)
[2018-02-28] MEDS: HumaLOG INSULIN (NovoLOG) PER UNIT SC SCH ×4 (07:30→21:00)
[2018-02-28 07:45] LABS: CPK CREATINE PHOSPHOKINASE 704 U/L (39-308)
[2018-02-28] MEDS: ENOXAPARIN 40 MG/0.4 ML SYRINGE (J1650) SC SCH (08:13)
[2018-02-28] MEDS: DULoxetine 30 MG CAP (CYMBALTA) PO SCH (08:14)
[2018-02-28] MEDS: LISINOPRIL 5 MG TAB PO SCH (08:14)
--- NOTE | 2018-02-28 08:29 | REP ---
Portable chest x-ray: Two views. History: Short of breath and cough. Comparison study: February 26, 2018. Findings: EKG monitoring electrodes are seen. Heart is not enlarged. The lungs are somewhat hyperinflated and diffuse interstitial fibrosis changes are again noted. Pleuroparenchymal biapical scarring is seen. There is no focal infiltrate or evidence of pleural effusion. Impression: No focal infiltrate. Evidence of COPD. Electronically Signed by Jese Bowles MD 02/28/2018 08:21 A
--- NOTE | 2018-02-28 11:48 | CR ---
DATE OF CONSULTATION: 02/27/2018 REFERRING PHYSICIAN: Nadira Boyd MD REASON FOR CONSULTATION: Altered mental status. HISTORY OF PRESENT ILLNESS Byron Mahoney is a 77-year-old man who came to emergency department on February 25, 2018 due to painful urination. His urinalysis was unremarkable. He was discharged home. The patient's has noted that his memory is slowly getting worse. He repeats himself. He stumbles over his words. His has been managing their bills and bank account for a number of years. He stopped driving 2 years ago. He gets confused at times. He woke up around 03:30 a.m. and was confused. He had slurred speech. There was no weakness of his arms and legs. There was no facial weakness. The patient states that he had a reaction to flu shot in October 2017. He denies any headaches, neck or back pain. He denies any numbness, weakness in his arms and legs. He denies dysphagia, dysarthria, diplopia or urinary incontinence. He has been taking Cymbalta for depression and gabapentin for pain for last one year. PAST MEDICAL HISTORY Hypertension, dyslipidemia, type 2 diabetes, chronic kidney disease, depression, anxiety, pyloroplasty, left rotator cuff surgery, right knee surgery, foot surgery, osteoarthritis, chronic obstructive pulmonary disease (COPD). SOCIAL HISTORY He is and lives with his . He used to smoke two packs per day. He denies alcohol or illicit drugs. FAMILY HISTORY Mother had stroke. Father committed suicide. REVIEW OF SYSTEMS All systems were reviewed and found to be noncontributory except as mentioned in history of present illness. HOME MEDICATIONS - Cymbalta 30 mg by mouth daily - gabapentin 100 mg by mouth three times a day - lisinopril 5 mg by mouth daily - Januvia 25 mg by mouth daily - Vicodin 7.5 / 325 mg by mouth every 6 hours as needed - albuterol inhaler as needed ALLERGIES: None. PHYSICAL EXAMINATION Temperature 99.6, pulse 105, respiratory rate 18, blood pressure 147/71, 94% saturation on room air. Heart: Regular rate and rhythm. Lungs: Clear to auscultation. Abdomen: Soft, nontender, nondistended. No pedal edema. No musculoskeletal abnormalities. No rash. No signs of meningeal irritation. No tremor. No dysmetria. The patient is awake, alert, oriented to month, date, year day of week, name of president, city, state and hospital. He is unable to do serial sevens. He cannot spell world backwards. His recall is 0/3 at 5 minutes. Extraocular muscles are intact. Visual [place] are full to confrontation. Pupils are 4 mm bilaterally, reactive to light. No facial weakness. Midline. 5/5 strength in all four extremities. Deep tendon reflexes are 1+ throughout. He has decreased cold, pinprick, vibration, sensation in his feet. Gait is normal. DIAGNOSTIC STUDIES MRI scan of brain and MRA brain were unremarkable. His urine toxicology screen was positive for opiates as he takes Vicodin. His CBC showed WBCs 10.3, platelet count 195 with normal metabolic profile. CRP was 3.1. TSH was 1.09. ASSESSMENT 1. Mild delirium. 2. Suspected mild cognitive impairment and early dementia. 3. Diabetic peripheral neuropathy. PLAN 1. Discontinue gabapentin. We can continue Cymbalta 30 mg by mouth daily for his depression. 2. His delirium will likely resolve on its own. He does not have any hallucinations. We can hold off Seroquel or Abilify at this time. 3. Consider Aricept and Namenda as outpatient. 4. Follow with us in 3 - 4 weeks after hospital discharge.
--- NOTE | 2018-02-28 13:54 | IPNPDOC ---
Date Seen The patient was seen on 02/28/18. Progress Note SUBJECTIVE: Patient reports feeling essentially back to his normal today. He has no complaints at this time OBJECTIVE PHYSICAL EXAMINATION: VITAL SIGNS: Please see below. GENERAL: Pleasant elderly man awake alert oriented 3 he is in no acute distress whatsoever he appears to have less difficulty with word finding today HEENT: Cranial nerves II through XII appear grossly intact CARDIOVASCULAR: S1-S2 regular. He is noted to be mildly tachycardic without additional heart sounds appreciated RESPIRATORY: Fairly clear to auscultation bilaterally. ABDOMINAL: Bowel sounds are present abdomen soft and nontender EXTREMITIES: No clubbing cyanosis or edema NEUROLOGICAL: No focal deficits LABORATORY DATA, IMAGING STUDIES, MICROBIOLOGY: Please see below. DVT prophylaxis ordered?: Lovenox ASSESSMENT AND PLAN: This is a 77-year-old man with difficulty with word finding. PROBLEMS: 1. Difficulty with word finding: Neurology was greatly appreciated the suspicion is that he has some mild cognitive impairment versus early dementia possibly some toxic metabolic encephalopathy secondary to gabapentin which is improving with cessation. We'll continue to hold gabapentin FROM out of the progressive care unit have an elevated PT OT and a PFS assess him for initiation of for potential services at home. One of his daughters reported that he wanders at night there is certainly concern for some early dementia he will require outpatient follow-up with neurology as well. MRIs were negative for any acute CVA does not appear to have been a TIA and infectious workup has been negative. 2. Dysuria: Appears to have resolved her urinalysis is fairly unremarkable he does not appear to be retaining any urine there is no suprapubic tenderness 3 Hypertension: Continue with lisinopril and blood pressure is improved today 4. NIDDM:Consistent carbohydrate diet, Januvia held, SSI. 5. COPD: Comfortable on room air, he is at his baseline respiratory status, Albuterol as needed 6. CKD3:Serum creatinine noted to be at baseline 1.4-1.5. 7. Chronic pain:Temporarily hold [place].Temporarily hold gabapentin. 8. Depression:Continue Cymbalta 9. Abnormal CKs: Appears to be trending down consider outpatient follow-up The patient is a full code DISPOSITION: Pending PT OT PFS VS, I&O, 24H, Fishbone Vital Signs/I&O Vital Signs Date Time Temp Pulse Resp B/P (MAP) Pulse Ox O2 Delivery O2 Flow Rate FiO2 1/13/19 12:00 99.6 109 20 169/71 (103) 93 Room Air I&O- Last 24 Hours up to 6 AM 02/28/18 06:00 Intake Total 1445 ml Output Total 700 ml Balance 745 ml Laboratory Data 24H LABS Laboratory Tests 2 02/27/18 16:24: Bedside Glucose (Misc Panel) 90 02/27/18 20:51: Bedside Glucose (Misc Panel) 92 02/28/18 05:03: Nucleated Red Blood Cells % (auto) 0.0, Anion Gap 11, Glomerular Filtration Rate > 60.0, Blood Urea Nitrogen 19H, Creatinine 1.23, Sodium Level 142, Potassium Level 3.8, Chloride Level 110H, Carbon Dioxide Level 21, Calcium Level 8.9, Aspartate Amino Transf (AST/SGOT) 40H, Alanine Aminotransferase (ALT/SGPT) 26, Total Creatine Kinase 704H, Alkaline Phosphatase 70, Total Bilirubin 0.4, Total Protein 7.1, Albumin 3.1L, Magnesium Level 2.1, Albumin/Globulin Ratio 0.78L 02/28/18 12:19: Bedside Glucose (Misc Panel) 173H CBC/BMP Laboratory Tests 02/28/18 05:03 Red Blood Count 3.86 L, Mean Corpuscular Volume 92.5, Mean Corpuscular Hemo globin 28.2, Mean Corpuscular Hemoglobin Concent 30.5 L, Red Cell Distribution Width 17.5 H, Calcium Level 8.9, Aspartate Amino Transf (AST/SGOT) 40 H, Alanine Aminotransferase (ALT/SGPT) 26, Total Creatine Kinase 704 H, Alkaline Phosphatase 70, Total Bilirubin 0.4, Total Protein 7.1, Albumin 3.1 L Microbiology Microbiology 02/27/18 Blood Culture - Preliminary, Resulted No growth after 24 hours . All specim... 02/27/18 Blood Culture - Preliminary, Resulted No growth after 24 hours . All specim... 02/26/18 Respiratory Virus Panel (PCR) ([place]) - Final, Complete 02/27/18 Urine Culture - Final, Complete BILL COUGHLIN MD Feb 28, 2018 13:54
--- NOTE | 2018-02-28 15:55 | ECGEPIP ---
Stationary ECG Study [facility] Test Date: 2018-02-27 Pat Name: MATTHEW FULTON Department: Room: [place] [address] Gender: M Director Of Employer Services: REINA : 1940 Requested By: BILL COUGHLIN Order Number: [id number] Reading MD: Augustus Whitmore Measurements Intervals [place] Rate: 103 P: 64 W[place]: 136 QRS: 34 QRSD: 82 T: 96 QT: 323 QTc: 423 Interpretive Statements SINUS TACHYCARDIA POSSIBLE LEFT ATRIAL ENLARGEMENT NONSPECIFIC ST & T-WAVE ABNORMALITY SIMILAR TO 02/26/18 Electronically Signed On 02-28-2018 15:55:42 EST by Augustus Whitmore
[2018-03-01] VITALS: BP 133/60
[2018-03-01] MEDS: ALBUTEROL SULFATE 2.5 MG/0.5 ML INH NEB SOLN INH PRN ×6 (03:25→21:36)
[2018-03-01 04:00] VITALS: BP 137/63
[2018-03-01 05:11] LABS: HEMATOCRIT 34.7 % (42.0-52.0); HEMOGLOBIN 10.7 g/dl (13.5-17.5); MEAN CORPUSCULAR HEMOGLOBIN 27.9 pg (27.0-33.0); MEAN CORPUSCULAR HGB CONC 30.8 g/dl (32.0-36.5); MEAN CORPUSCULAR VOLUME 90.6 fl (80.0-96.0); PLATELET COUNT, AUTOMATED 184 10^3/uL (150-450); RED BLOOD COUNT 3.83 10^6/uL (4.30-6.10); WHITE BLOOD COUNT 8.5 10^3/uL (4.0-10.0)
[2018-03-01 05:39] LABS: ALBUMIN 3.1 GM/DL (3.2-5.2); BILIRUBIN,TOTAL 0.4 MG/DL (0.2-1.0); CALCIUM LEVEL 9.2 MG/DL (8.8-10.2); CREATININE FOR GFR 1.33 MG/DL (0.70-1.30); GLOMERULAR FILTRATION RATE 55.2 (>42); POTASSIUM SERUM 3.6 MEQ/L (3.5-5.1); TOTAL PROTEIN 7.3 GM/DL (6.4-8.2)
[2018-03-01 08:00] VITALS: BP 145/67
[2018-03-01] MEDS ORDERED: SLF 3 ML SYR IV PRN (09:00)
[2018-03-01] MEDS: HumaLOG INSULIN (NovoLOG) PER UNIT SC SCH ×4 (09:03→20:04)
[2018-03-01] MEDS: DULoxetine 30 MG CAP (CYMBALTA) PO SCH (09:03)
[2018-03-01] MEDS: ENOXAPARIN 40 MG/0.4 ML SYRINGE (J1650) SC SCH (09:04)
[2018-03-01] MEDS: LISINOPRIL 5 MG TAB PO SCH (09:04)
[2018-03-01] MEDS: SLF 3 ML SYR IV SCH ×2 (14:00→21:58)
--- NOTE | 2018-03-01 14:54 | IPNPDOC ---
Date Seen The patient was seen on 03/01/18. Progress Note SUBJECTIVE: Patient reports feeling back to his normal today. He has no complaints at this time OBJECTIVE PHYSICAL EXAMINATION: VITAL SIGNS: Please see below. GENERAL: Pleasant elderly man awake alert oriented 3 he is in no acute distress whatsoever speech is more fluent today HEENT: Cranial nerves II through XII appear grossly intact CARDIOVASCULAR: S1-S2 regular. He is noted to be mildly tachycardic without additional heart sounds appreciated RESPIRATORY: Fairly clear to auscultation bilaterally. ABDOMINAL: Bowel sounds are present abdomen soft and nontender EXTREMITIES: No clubbing cyanosis or edema NEUROLOGICAL: No focal deficits LABORATORY DATA, IMAGING STUDIES, MICROBIOLOGY: Please see below. DVT prophylaxis ordered?: Lovenox ASSESSMENT AND PLAN: This is a 77-year-old man with difficulty with word finding. PROBLEMS: 1. Difficulty with word finding: Neurology help is greatly appreciated, the suspicion is that this was related to medication adverse effect possibly gabapentin versus narcotic both of been held and he continues to improve daily. Neurology also feels he has some mild cognitive impairment versus early dementia. PFS does not feel he is a candidate for any services at home will follow-up PT OT recommendations. I did speak with the given that he continues to be improving I think he could potentially be discharged as early as tomorrow to discuss this plan with her did request tomorrow given that she is also quite sick herself with an upper respiratory tract infection. MRI was negative for any acute CVA does not appear to have been a TIA and infectious workup has been negative. 2. Dysuria: Appears to have resolved his urinalysis is fairly unremarkable he does not appear to be retaining any urine there is no suprapubic tenderness 3 Hypertension: Continue with lisinopril and blood pressure is improved today 4. NIDDM:Consistent carbohydrate diet, Januvia held, SSI. 5. COPD: Comfortable on room air, he is at his baseline respiratory status, Albuterol as needed 6. CKD3:Serum creatinine noted to be at baseline 1.4-1.5. 7. Chronic pain:Temporarily hold [place].Temporarily hold gabapentin. 8. Depression:Continue Cymbalta 9. Abnormal CKs: Appears to be trending down consider outpatient follow-up 10. Elevated AST: Likely related to his mild rhabdo again appears to be trending down DISPOSITION: Pending PT OT likely home tomorrow VS, I&O, 24H, Fishbone Vital Signs/I&O Vital Signs Date Time Temp Pulse Resp B/P (MAP) Pulse Ox O2 Delivery O2 Flow Rate FiO2 03/01/18 08:00 97.8 100 18 145/67 (93) 98 Room Air I&O- Last 24 Hours up to 6 AM 03/01/18 06:00 Intake Total 390 ml Output Total 600 ml Balance -210 ml Laboratory Data 24H LABS Laboratory Tests 2 02/28/18 17:37: Bedside Glucose (Misc Panel) 155H 02/28/18 20:49: Bedside Glucose (Misc Panel) 92 03/01/18 04:58: Nucleated Red Blood Cells % (auto) 0.0, Anion Gap 13, Glomerular Filtration Rate 55.2, Blood Urea Nitrogen 18, Creatinine 1.33H, Sodium Level 144, Potassium Level 3.6, Chloride Level 110H, Carbon Dioxide Level 21, Calcium Level 9.2, Aspartate Amino Transf (AST/SGOT) 38H, Alanine Aminotransferase (ALT/SGPT) 26, Total Creatine Kinase 647H, Alkaline Phosphatase 73, Total Bilirubin 0.4, Total Protein 7.3, Albumin 3.1L, Magnesium Level 2.0, Albumin/Globulin Ratio 0.74L 03/01/18 11:28: Bedside Glucose (Misc Panel) 86 CBC/BMP Laboratory Tests 03/01/18 04:58 Red Blood Count 3.83 L, Mean Corpuscular Volume 90.6, Mean Corpuscular Hemoglobin 27.9, Mean Corpuscular Hemoglobin Concent 30.8 L, Red Cell Distribution Width 17.3 H, Calcium Level 9.2, Aspartate Amino Transf (AST/SGOT) 38 H, Alanine Aminotransferase (ALT/SGPT) 26, Total Creatine Kinase 647 H, Alkaline Phosphatase 73, Total Bilirubin 0.4, Total Protein 7.3, Albumin 3.1 L Microbiology Microbiology 02/27/18 Blood Culture - Preliminary, Resulted No Growth after 48 hours. All Specime... 02/27/18 Blood Culture - Preliminary, Resulted No Growth after 48 hours. All Specime... 02/26/18 Respiratory Virus Panel (PCR) ([place]) - Final, Complete 02/27/18 Urine Culture - Final, Complete BILL COUGHLIN MD Mar 01, 2018 14:54
[2018-03-01 15:30] VITALS: BP 171/76
[2018-03-01] MEDS ORDERED: LISINOPRIL 5 MG TAB PO ONE (16:30)
[2018-03-01 20:00] VITALS: BP 127/66
[2018-03-02] MEDS: ALBUTEROL SULFATE 2.5 MG/0.5 ML INH NEB SOLN INH PRN (02:17)
[2018-03-02] MEDS: SLF 3 ML SYR IV SCH (05:22)
[2018-03-02 05:59] VITALS: BP 145/64
[2018-03-02 06:39] LABS: HEMATOCRIT 33.7 % (42.0-52.0); HEMOGLOBIN 10.3 g/dl (13.5-17.5); MEAN CORPUSCULAR HEMOGLOBIN 28.2 pg (27.0-33.0); MEAN CORPUSCULAR HGB CONC 30.6 g/dl (32.0-36.5); MEAN CORPUSCULAR VOLUME 92.3 fl (80.0-96.0); PLATELET COUNT, AUTOMATED 197 10^3/uL (150-450); RED BLOOD COUNT 3.65 10^6/uL (4.30-6.10); WHITE BLOOD COUNT 8.3 10^3/uL (4.0-10.0)
[2018-03-02 07:11] LABS: BILIRUBIN,TOTAL 0.5 MG/DL (0.2-1.0); CALCIUM LEVEL 8.9 MG/DL (8.8-10.2); CREATININE FOR GFR 1.38 MG/DL (0.70-1.30); GLOMERULAR FILTRATION RATE 52.9 (>42); MAGNESIUM LEVEL 2.1 MG/DL (1.8-2.4); POTASSIUM SERUM 3.9 MEQ/L (3.5-5.1)
[2018-03-02] MEDS: HumaLOG INSULIN (NovoLOG) PER UNIT SC SCH (07:22)
[2018-03-02] MEDS ORDERED: LISI10TA4 PO (08:08)
[2018-03-02 08:18] VITALS: BP 130/58
[2018-03-02 08:21] VITALS: BP 130/58
[2018-03-02] MEDS: DULoxetine 30 MG CAP (CYMBALTA) PO SCH (08:21)
[2018-03-02] MEDS: ENOXAPARIN 40 MG/0.4 ML SYRINGE (J1650) SC SCH (08:22)
[2018-03-02] MEDS ORDERED: LISINOPRIL 10 MG TAB PO SCH (09:00)
--- NOTE | 2018-03-02 15:05 | DS.PDOC ---
Discharge Summary General Date of Admission Feb 26, 2018 at 15:12 Date of Discharge 03/02/2018 Discharge Summary PROCEDURES PERFORMED DURING STAY: [None]. ADMITTING DIAGNOSES / DISCHARGE DIAGNOSES: Acute metabolic encephalopathy - likely 2/2 medications, less likely 2/2 TIA s/p Dysuria HTN NIDDM COPD CKD3 Chronic pain Depression Mild rhabdomyolysis s/p Elevated AST - likely 2/2 mild rhabdomyolysis DVT prophylaxis COMPLICATIONS/CHIEF COMPLAINT: Confusion HISTORY OF PRESENT ILLNESS: Patient is a 77-year-old male with a PMHx of HTN, DLP, NIDDM2, COPD, CKD3, Hx of Duodenal ulcers, Depression / Anxiety, Chronic ankles OA, who presented to the ER with complaints of confusion. Patient was suspected to have possible TIA / medication associated encephalopathy. He was admitted to the hospital service for further evaluation and treatment. HOSPITAL COURSE: Acute metabolic encephalopathy - likely 2/2 medications, less likely 2/2 TIA - Presented to the ER with complaints of difficulty finding words - Patient has had full resolution of the symptoms - Patient had his gabapentin and narcotic medications discontinued - Labs unrevealing; Infectious workup negative - CT head 02/26: Small vessel ischemic disease. Moderate volume loss. - MRI 02/26: Limited study secondary to excessive patient motion on multiple sequences. The diffusion weighted sequence is not motion degraded and there is no evidence of an acute cortical infarct. Symmetric-appearing brain atrophy. - MRA 02/26: Unremarkable MR angiogram of the [place] and intracranial vertebrobasilar system. - Neurology on consultation; appreciate their input - Has cleared physical / occupational therapy for discharge home s/p Dysuria - Has resolved without antibiotics - UA without evidence of infection HTN - BP well controlled - c/w adjusted dose of lisinopril NIDDM - c/w ISS COPD - No evidence of exacerbation - c/w inhaled therapy as ordered CKD3 - Cr baseline of 1.4-1.5 Chronic pain - Will avoid narcotics and Gabapentin Depression - c/w Duloxetine Mild rhabdomyolysis - CK has been improving s/p Elevated AST - likely 2/2 mild rhabdomyolysis - Improving DVT prophylaxis - c/w Lovenox DISCHARGE MEDICATIONS: Please see below. ALLERGIES: Please see below. PHYSICAL EXAMINATION ON DISCHARGE: Vitals (See below) General: Lying in bed, no acute distress, comfortable, AAOx3 HEENT: NC, AT CVS: RRR, +S1S2 Lungs: Fair air entry b/l, -w/r/r Abdomen: Soft, ND, NT Extremities: - Edema, - Calf tenderness LABORATORY DATA: Please see below. ACTIVITY: [As tolerated]. DISCHARGE PLAN: Follow up with Dr. Gumaro Fishman and Dr. Lim within 7 days Remain compliant with treatment plan and medications Return to the ER if you experience any problems DISPOSITION: Home, Self-Care. DISCHARGE CONDITION: [Stable]. TIME SPENT ON DISCHARGE: Greater than [35] minutes. Vital Signs/I&Os Vital Signs Date Time Temp Pulse Resp B/P (MAP) Pulse Ox O2 Delivery O2 Flow Rate FiO2 03/02/18 08:21 130/58 03/02/18 08:18 113 03/02/18 05:59 98.6 18 97 Room Air I&O- Last 24 Hours up to 6 AM 03/02/18 06:00 Intake Total 1720 ml Output Total 500 ml Balance 1220 ml Laboratory Data Labs 24H Laboratory Tests 2 03/01/18 16:33: Bedside Glucose (Misc Panel) 99 03/01/18 19:43: Bedside Glucose (Misc Panel) 111H 03/02/18 06:23: Nucleated Red Blood Cells % (auto) 0.0, Anion Gap 10, Glomerular Filtration Rate 52.9, Blood Urea Nitrogen 20H, Creatinine 1.38H, Sodium Level 140, Potassium Level 3.9, Chloride Level 108H, Carbon Dioxide Level 22, Calcium Level 8.9, Aspartate Amino Transf (AST/SGOT) 36, Alanine Aminotransferase (ALT/SGPT) 29, Alkaline Phosphatase 69, Total Bilirubin 0.5, Total Protein 7.0, Albumin 3.0L, Magnesium Level 2.1, Albumin/Globulin Ratio 0.75L CBC/BMP Laboratory Tests 03/02/18 06:23 Red Blood Count 3.65 L, Mean Corpuscular Volume 92.3, Mean Corpuscular Hemoglobin 28.2, Mean Corpuscular Hemoglobin Concent 30.6 L, Red Cell Distribution Width 17.2 H, Calcium Level 8.9, Aspartate Amino Transf (AST/SGOT) 36, Alanine Aminotransferase (ALT/SGPT) 29, Alkaline Phosphatase 69, Total Bilirubin 0.5, Total Protein 7.0, Albumin 3.0 L FSBS Laboratory Tests Test 03/01/18 16:33 03/01/18 19:43 Range/Units Bedside Glucose (Misc Panel) 99 111 83-110 MG/DL Microbiology Microbiology 02/27/18 Blood Culture - Preliminary, Resulted No Growth after 72 hours. All specime... 02/27/18 Blood Culture - Preliminary, Resulted No Growth after 72 hours. All specime... 02/26/18 Respiratory Virus Panel (PCR) ([place]) - Final, Complete 02/27/18 Urine Culture - Final, Complete Discharge Medications Scheduled Duloxetine Hcl (Duloxetine HCl) 30 Mg Cap, 30 MG PO DAILY, (Reported) Lisinopril (Lisinopril) 10 Mg Tab, 10 MG PO DAILY Sitagliptin Phosphate (Januvia) 25 Mg Tab, 25 MG PO DAILY, (Reported) Scheduled PRN Albuterol Sulfate (Proair Hfa) 108 Mcg/Act Aer, 2 PUFF INH Q6H PRN for SHORTNESS OF BREATH, (Reported) Allergies Coded Allergies: No Known Allergies (Unverified , 02/26/18) LEDY MASTERSON MD Mar 02, 2018 15:05
== END 2018-03-02 09:35 | disposition home or self-care (01) | DRG 92 ==
LOC: EDBD 11:11 → M ED 11:11 → M ED INP 15:12 → M PCU 22:50 → M MS4PR 03-01 15:02
PROVIDERS: ADMIT Internal Medicine; ATTEND Internal Medicine
DX: G92 Toxic encephalopathy (principal); M62.82 Rhabdomyolysis; I12.9 Hypertensive chronic kidney disease with stage 1 through stage 4 chronic kidney disease, or unspecified chronic kidney disease; E11.51 Type 2 diabetes mellitus with diabetic peripheral angiopathy without gangrene; F32.9 Major depressive disorder, single episode, unspecified; G89.29 Other chronic pain; J44.9 Chronic obstructive pulmonary disease, unspecified; N18.3 Chronic kidney disease, stage 3 (moderate); R74.8 Abnormal levels of other serum enzymes; F41.9 Anxiety disorder, unspecified; M19.071 Primary osteoarthritis, right ankle and foot; M19.072 Primary osteoarthritis, left ankle and foot; Z79.899 Other long term (current) drug therapy; E78.5 Hyperlipidemia, unspecified; K57.30 Diverticulosis of large intestine without perforation or abscess without bleeding

== ENCOUNTER → 2018-04-13 | Outpatient (CLI) | payer MEDICARE, BC, OTHER ==
[~2018-04-13] MED LIST changes: +DULO1CAP2 PO; +LISI10TA4 PO; +PROAAER10 INH
--- NOTE | 2018-04-13 14:16 | REP ---
Clinical: Transient ischemic attack and high risk factors. Technique: Hassan scale and color Doppler evaluation using linear high frequency transducer Findings: Two-dimensional hassan scale and color images demonstrate significant mixed atheromatous plaquing along the common carotid arteries extending through the proximal portions of the internal and external carotid arteries bilaterally (left greater than right). Visible areas of narrowing are appreciated. Color Doppler interrogation demonstrates normal arterial wave patterns with areas of increased velocity and moderate spectral broadening. Normal appearance of the right vertebral artery noted along with nonvisualization and suspected occlusion of the left vertebral artery. RIGHT (cm/s) LEFT (cm/s) ICA peak systolic velocity 92.8 281.0 ICA diastolic velocity 17.9 55.0 ECA peak systolic velocity 124.0 120.0 CCA peak systolic velocity 100.0 100.0 ICA/CCA ratio 0.92 2.81 Impression: 1. Stenosis of the right proximal to mid internal carotid artery visibly in the 50-69% range. 2. Stenosis of the left internal carotid artery suggested in the greater than 70% range. 3. 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 Electronically Signed by Chaz Garcia MD 04/13/2018 02:08 P
== END ==
LOC: M RAD 13:02
PROVIDERS: ATTEND Family Medicine
DX: F33.41 Major depressive disorder, recurrent, in partial remission (principal); I65.23 Occlusion and stenosis of bilateral carotid arteries

== ENCOUNTER → 2018-04-14 | Outpatient (REF) | payer MEDICARE, OTHER ==
[2018-04-14 14:35] LABS: C REACTIVE PROTEIN QUANTITATIV 1.75 MG/DL (0.00-0.30); CALCIUM LEVEL 9.1 MG/DL (8.8-10.2); CHOLESTEROL RISK RATIO 5.312 (<5); CREATININE FOR GFR 1.64 MG/DL (0.70-1.30); GLOMERULAR FILTRATION RATE 43.4 (>42); POTASSIUM SERUM 4.8 MEQ/L (3.5-5.1)
[2018-04-14 14:37] LABS: HEMOGLOBIN A1c 6.7 %
== END ==
LOC: M SFHCPLAZ 13:12
PROVIDERS: ATTEND Family Medicine
DX: R74.8 Abnormal levels of other serum enzymes (principal); R70.0 Elevated erythrocyte sedimentation rate; E11.22 Type 2 diabetes mellitus with diabetic chronic kidney disease; E78.2 Mixed hyperlipidemia; G45.9 Transient cerebral ischemic attack, unspecified

== ENCOUNTER → 2018-04-16 | Outpatient (CLI) | payer MEDICARE, BC, OTHER ==
--- NOTE | 2018-04-16 10:54 | REP ---
MRA BRAIN WITHOUT CONTRAST: HISTORY: Vertebral artery stenosis. COMPARISON: 02/26/2018 There is no aneurysm or arteriovenous malformation. Mild atherosclerotic disease involves the horizontal and petrous segments and cavernous segments of the internal carotid arteries and distal left vertebral artery. The A1 segment of the right anterior cerebral artery is hypoplastic. The major intracranial vessels are patent. The right vertebral artery is dominant. IMPRESSION: 1. There is no aneurysm or arteriovenous malformation. 2. Atherosclerotic disease as described above. Electronically Signed by Seven Morin MD 04/16/2018 10:59 A
--- NOTE | 2018-04-16 11:06 | REP ---
MRA CAROTIDS WITHOUT AND WITH CONTRAST: HISTORY: Vertebral stenosis. CONTRAST: ProHance 12 mL. Unenhanced 3D [id number] and contrast enhanced MR angiography were performed at the level of the carotid bifurcations. There is mild stenosis of 15% of the right internal carotid artery at its origin. There is mild stenosis of 10% of the right external carotid artery at its origin. There is mild stenosis of 25% of the left internal carotid artery 10 mm from its origin. The origin of the left external carotid artery is normal. There is loss of the normal hyperintense signal in the left vertebral artery at its origin. This is consistent with at least moderate stenosis. The left vertebral artery is markedly decreased in caliber. There is loss of the normal hyperintense signal in multiple segments of the left vertebral artery. There is loss of the normal hyperintense signal in the distal left vertebral artery at the C1-2 level. There is reconstitution of the distal left vertebral artery at the craniovertebral junction. The right vertebral artery is dominant. The right vertebral artery is patent. IMPRESSION: 1. Mild stenosis of 15% of the right internal carotid artery at its origin. 2. Mild stenosis of 25% of the left internal carotid artery 10 mm from its origin. 3. There is loss of the normal hyperintense signal in the left vertebral artery at its origin consistent with at least moderate stenosis. The left vertebral artery is markedly decreased in caliber with loss of signal at the C1-2 level. There is reconstitution of the left vertebral artery at the craniovertebral junction. Electronically Signed by Seven Morin MD 04/16/2018 11:08 A
== END ==
LOC: M PLARAD 08:18
PROVIDERS: ATTEND Family Medicine
DX: I65.03 Occlusion and stenosis of bilateral vertebral arteries (principal); I65.23 Occlusion and stenosis of bilateral carotid arteries

== ENCOUNTER → 2018-06-07 | Outpatient (CLI) | payer MEDICARE, BC, OTHER ==
[2018-06-07 12:16] LABS: CREATININE FOR GFR 1.54 MG/DL (0.70-1.30); GLOMERULAR FILTRATION RATE 46.6 (>42)
== END ==
LOC: M LAB 10:47
DX: E11.8 Type 2 diabetes mellitus with unspecified complications (principal)

== ENCOUNTER → 2018-06-08 | Outpatient (CLI) | payer MEDICARE, BC, OTHER ==
[~2018-06-08] MED LIST changes: +ISOVUE-370 76% 100ML VIAL (Q9967) As Ordered ONE
--- NOTE | 2018-06-08 18:14 | REP ---
CT ANGIO HEAD; HISTORY: Carotid stenosis. CONTRAST: Isovue-370 100 mL. There is no aneurysm or arteriovenous malformation. Calcified atherosclerotic plaques are present in the horizontal and vertical petrous, cavernous internal carotid arteries and supraclinoid right internal carotid artery. These produce mild to moderate stenosis. Major intracranial vessels are patent. The vertebral arteries are equal in size. The deep venous system and dural sinuses are patent. IMPRESSION: 1. There is aneurysm or arteriovenous malformation. 2. Atherosclerotic disease as described above. Electronically Signed by Seven Morin MD 06/09/2018 08:26 A
--- NOTE | 2018-06-08 18:46 | REP ---
CT ANGIO NECK: HISTORY: Carotid stenosis. CONTRAST: Isovue-370 100 mL. Calcified atherosclerotic plaque is present at the origin of the right internal carotid artery. There is mild stenosis with 30% of the right internal carotid artery at its origin. There is mild stenosis of 45% of the right internal carotid artery 1 cm from its origin. The origin of the right external carotid artery is normal. Calcified atherosclerotic plaque is present at the origin of the left internal carotid artery. There is mild stenosis of 35% of the left internal carotid artery at its origin. There is moderate stenosis of 50% of the left internal carotid internal and 1 cm from its origin. The origin of the left external carotid artery is normal. Several small calcified atherosclerotic plaques are present in the distal cervical left internal carotid artery. There is no significant stenosis. Calcified atherosclerotic plaques are present at the origins of the left subclavian, left common carotid and right subclavian arteries . These produce mild stenosis. There is occlusion of the left vertebral artery at its origin. There is reconstitution of the left vertebral artery at the C1-2 level from collateral flow via branches of the left external carotid artery. The right vertebral artery is patent. Irregular parenchymal nodules and scarring are present in the lung apices. IMPRESSION:1. Mild stenosis of 30% of the right internal carotid artery at its origin. There is mild stenosis of 45% of the right internal carotid artery 1 cm from its origin. 2. Mild stenosis of 35% of the left internal carotid artery at its origin. There is moderate stenosis of 50% of the left internal carotid artery 1 cm from its origin. 3. There are irregular parenchymal nodules and scarring in the lung apices. CT of the chest is recommended for further evaluation. Electronically Signed by Seven Morin MD 06/09/2018 08:33 A
== END ==
LOC: M RAD 14:46
PROVIDERS: ATTEND Surgery Vascular Surgery
DX: I65.23 Occlusion and stenosis of bilateral carotid arteries (principal); R91.8 Other nonspecific abnormal finding of lung field
CPT/HCPCS: 70496; 70498; Q9967

== ENCOUNTER → 2018-10-28 | Outpatient (REF) | payer MEDICARE, OTHER ==
[~2018-10-28] MED LIST changes: -DULO1CAP2 PO; +DULO1CAP5 PO; -ISOVUE-370 76% 100ML VIAL (Q9967) As Ordered ONE
[2018-10-28 18:40] LABS: CALCIUM LEVEL 9.3 MG/DL (8.8-10.2); CREATININE FOR GFR 1.59 MG/DL (0.70-1.30); GLOMERULAR FILTRATION RATE 44.8 (>35); POTASSIUM SERUM 4.8 MEQ/L (3.5-5.1)
[2018-10-28 19:08] LABS: MALB URINE SIEMENS 33.8 MG/L; MAU/CREAT RATIO 21.9 MCG/MG (0.0-30.0)
[2018-10-28 19:36] LABS: HEMOGLOBIN A1c 6.3 %
== END ==
LOC: M SFHCPLAZ 15:28
PROVIDERS: ATTEND Family Medicine
DX: E11.22 Type 2 diabetes mellitus with diabetic chronic kidney disease (principal)
CPT/HCPCS: 36415; 80048; 82043; 83036; G0463

== ENCOUNTER → 2019-02-15 | Outpatient (REF) | payer MEDICARE, OTHER ==
[2019-02-15 13:08] LABS: APPEARANCE, URINE CLEAR (CLEAR); BACTERIA, URINE AUTO NEGATIVE (NEGATIVE); BILIRUBIN, URINE AUTO NEGATIVE (NEGATIVE); BLOOD, URINE BLOOD NEGATIVE (NEGATIVE); COLOR, URINE AMBER (YELLOW); GLUCOSE, URINE (UA) AUTO NEGATIVE (NEGATIVE); KETONE, URINE AUTO NEGATIVE (NEGATIVE); LEUKOCYTE ESTERASE, URINE AUTO NEGATIVE (NEGATIVE); MUCUS, URINE SMALL (NEGATIVE); NITRITE, URINE AUTO POSITIVE (NEGATIVE); PROTEIN, URINE AUTO NEGATIVE (NEGATIVE); RBC, URINE AUTO 0 /HPF (0-3); SPECIFIC GRAVITY URINE AUTO 1.006 (1.002-1.035); SQUAMOUS EPITHELIAL CELL UR AU 0 /HPF (0-6); UROBILINOGEN, URINE AUTO 0.2 mg/dL (0.0-2.0); WBC, URINE AUTO 0 /HPF (0-3)
== END ==
LOC: M LAB REF 12:33
PROVIDERS: ATTEND Physician Assistant Medical
DX: N39.0 Urinary tract infection, site not specified (principal)